=== PATIENT | female | born 1980 | race Two or more races ===

== ENCOUNTER → 2018-06-26 | Outpatient (CLI) | payer OTHER ==
[~2018-06-26] MED LIST: ASCO100019 PO; FERR142T13 PO; IBUP200C8 PO
[2018-06-26 12:33] LABS: BASOPHILS # (AUTO) 0.05 x10^3/uL (0-0.1); BASOPHILS % (AUTO) 1 % (0-1); EOSINOPHILS # (AUTO) 0.22 x10^3/uL (0-0.4); EOSINOPHILS % (AUTO) 5 % (1-7); LYMPHOCYTES # (AUTO) 1.64 x10^3/uL (1-3.4); LYMPHOCYTES % (AUTO) 37 % (22-44); MD NO; MEAN CORPUSCULAR HEMOGLOBIN 29.4 pg (27.0-34.8); MEAN CORPUSCULAR HGB CONC 33.5 g/dL (32.4-35.8); MEAN CORPUSCULAR VOLUME 87.8 fL (80-100); MEAN PLATELET VOLUME 9.9 fL (7.4-10.4); MONOCYTES # (AUTO) 0.41 x10^3/uL (0.2-0.8); MONOCYTES % (AUTO) 9 % (2-9); NEUTROPHILS # (AUTO) 2.11 x10^3/uL (1.8-6.8); NEUTROPHILS % (AUTO) 48 % (42-75); PLATELET COUNT 271 x10^3/uL (130-400); RED BLOOD COUNT 4.35 x10^6/uL (3.82-5.3); RED CELL DISTRIBUTION WIDTH 14.9 % (9.6-15.2)
== END | disposition home or self-care (01) ==
LOC: STAR 10:40
PROVIDERS: ATTEND Specialist
DX: Z01.818 Encounter for other preprocedural examination (principal); Z91.041 Radiographic dye allergy status; Z91.013 Allergy to seafood
CPT/HCPCS: 36415; 85025

== ENCOUNTER 2018-07-09 07:38 | Inpatient (IN) | payer OTHER ==
[~2018-07-09] VITALS: Ht 172.7 cm; Wt 79.2 kg
[2018-07-09 08:25] VITALS: BP 135/92
[2018-07-09] MEDS ORDERED: LABETALOL 5MG/ML, 20ML IV PRN (08:30)
[2018-07-09] MEDS ORDERED: DIPHENHYDRAMINE 50 MG/ML, 1ML IVPush PRN (08:30)
[2018-07-09] MEDS ORDERED: METOPROLOL 1 MG/ML, 5ML IV PRN (08:30)
[2018-07-09] MEDS ORDERED: hydrALAzine 20 MG/ML, 1ML IV PRN (08:30)
[2018-07-09] MEDS ORDERED: MEPERIDINE/PF 25MG/0.5ML IVPush PRN (08:30)
[2018-07-09] MEDS ORDERED: GABAPENTIN 300 MG CAPSULE PO ONE (08:30)
[2018-07-09] MEDS ORDERED: ACETAMINOPHEN 500 MG TABLET PO ONE (08:30)
[2018-07-09] MEDS ORDERED: LACTATED RINGERS 1,000 ML IV SCH (08:30)
[2018-07-09] MEDS ORDERED: PROCHLORPERAZINE 5 MG/ML, 2ML IV PRN (08:30)
[2018-07-09] MEDS ORDERED: PROMETHAZINE 25 MG/ML, 1ML IV PRN (08:30)
[2018-07-09] MEDS ORDERED: HALOPERIDOL 5 MG/ML IV PRN (08:30)
[2018-07-09 08:31] LABS: HCG UR SG 1.012 (1.003-1.030)
[2018-07-09] MEDS ORDERED: MIDAZOLAM 1 MG/ML, 2ML ONE (09:58)
[2018-07-09] MEDS ORDERED: FENTANYL PF 250 MCG/5ML ONE (09:59)
[2018-07-09] MEDS ORDERED: DEXAMETHASONE 4 MG/ML, 1ML ONE (10:01)
[2018-07-09] MEDS ORDERED: SUCCINYLCHOLINE 20 MG/ML, 10ML ONE (10:01)
[2018-07-09] MEDS ORDERED: ROCURONIUM 10 MG/ML,10ML ONE (10:01)
[2018-07-09] MEDS ORDERED: GLYCOPYRROLATE 0.2MG/1ML, 5ML ONE (10:01)
[2018-07-09] MEDS ORDERED: CEFAZOLIN 1,000 MG ONE (10:01)
[2018-07-09] MEDS ORDERED: KETOROLAC 30 MG/1 ML ONE (10:01)
[2018-07-09] MEDS ORDERED: ONDANSETRON 2MG/ML, 2ML ONE (10:01)
[2018-07-09] MEDS ORDERED: NEOSTIGMINE 1 MG/ML, 10ML ONE (10:01)
[2018-07-09] MEDS ORDERED: PROPOFOL 10 MG/ML, 20ML ONE (10:01)
[2018-07-09] MEDS ORDERED: SCOPOLAMINE PATCH, 1.5MG PATCH.TD72 TD ONE (10:21)
[2018-07-09] MEDS ORDERED: OXYcodone 5 MG/5 ML ORAL.SOL UDC ONE ×2 (12:16→12:41)
[2018-07-09] MEDS ORDERED: FENTANYL PF 100 MCG/2ML ONE (12:16)
[2018-07-09] MEDS: FENTANYL PF 100 MCG/2ML IV PRN ×2 (12:19→12:31)
[2018-07-09] MEDS: OXYcodone 5 MG/5 ML ORAL.SOL UDC PO PRN ×4 (12:25→17:39)
[2018-07-09] MEDS ORDERED: OPIUM/BELLADONNA SUPP.RECT 16.2-30 MG ONE (12:27)
[2018-07-09] MEDS ORDERED: OPIUM/BELLADONNA SUPP.RECT 16.2-30 MG PR PRN ×2 (12:30→16:00)
[2018-07-09] MEDS ORDERED: HYDROmorphone 1 MG/ML, 1ML ONE (12:40)
[2018-07-09] MEDS: HYDROmorphone 2 MG/ML, 1ML IVPush PRN ×2 (12:44→13:10)
[2018-07-09 14:00] VITALS: BP 127/85
[2018-07-09] MEDS ORDERED: MEPERIDINE/PF 100 MG/ML IM PRN (16:00)
[2018-07-09] MEDS ORDERED: HYDROmorphone 2 MG/ML, 1ML IV PRN (16:00)
[2018-07-09] MEDS: SIMETHICONE 80 MG CHEW TAB PO SCH ×2 (16:40→21:54)
[2018-07-09] MEDS: POTASSIUM CHLORIDE 20 MEQ in D5%-LACTATED RINGERS 1,000 ML IV SCH (16:41)
[2018-07-09] MEDS: KETOROLAC 30 MG/1 ML IV SCH ×2 (17:40→23:29)
[2018-07-09] MEDS: CEFAZOLIN PMX 1GM/50ML 50 ML IVPB SCH (18:09)
[2018-07-09 20:04] VITALS: BP 123/82
[2018-07-09] MEDS ORDERED: ZOLPIDEM 5MG TABLET PO PRN (21:00)
[2018-07-10 01:13] VITALS: BP 103/67
[2018-07-10] MEDS: POTASSIUM CHLORIDE 20 MEQ in D5%-LACTATED RINGERS 1,000 ML IV SCH ×2 (02:26→08:10)
[2018-07-10] MEDS: CEFAZOLIN PMX 1GM/50ML 50 ML IVPB SCH (02:26)
[2018-07-10 04:06] VITALS: BP 98/64
[2018-07-10] MEDS: KETOROLAC 30 MG/1 ML IV SCH ×2 (05:13→11:44)
[2018-07-10 08:17] VITALS: BP 113/70
[2018-07-10] MEDS: SIMETHICONE 80 MG CHEW TAB PO SCH ×2 (09:16→18:05)
[2018-07-10] MEDS ORDERED: OXYC5CAP2 PO (11:02)
[2018-07-10 15:51] VITALS: BP 118/84
[2018-07-10] MEDS ORDERED: IBUPROFEN 600 MG TABLET PO SCH (17:30)
[2018-07-10] MEDS: OXYcodone 5 MG/5 ML ORAL.SOL UDC PO PRN (18:05)
== END 2018-07-10 18:15 | disposition home or self-care (01) | DRG 743 ==
LOC: ORIP 07:38 → 4NOR 14:12
PROVIDERS: ADMIT Specialist; ATTEND Specialist
PROC: 0UT70ZZ Resection of Bilateral Fallopian Tubes, Open Approach (ICD-10-PCS; 2018-07-09)
PROC: 3E0T3BZ Introduction of Anesthetic Agent into Peripheral Nerves and Plexi, Percutaneous Approach (ICD-10-PCS; 2018-07-09)
PROC: 0UT90ZL Resection of Uterus, Supracervical, Open Approach (ICD-10-PCS; principal; 2018-07-09 09:30)
DX: D25.9 Leiomyoma of uterus, unspecified (principal); F41.9 Anxiety disorder, unspecified; N32.89 Other specified disorders of bladder; N92.0 Excessive and frequent menstruation with regular cycle; Z80.52 Family history of malignant neoplasm of bladder; Z82.5 Family history of asthma and other chronic lower respiratory diseases; Z87.891 Personal history of nicotine dependence
CPT/HCPCS: 36415; J3490; J7121; 81025; 85014; 85018; 88307; G0378; J0690; J1100; J1170; J1885; J2250; J2405; J2704; J2710; J3010; J3480; J0330; J7120